=== PATIENT | female | born 1990 | race Caucasian/White ===

== ENCOUNTER 2023-12-29 18:14 | Emergency (ER) | payer BC ==
[~2023-12-29] VITALS: Ht 162.6 cm; Wt 68.9 kg
[2023-12-29 19:18] LABS: BILIRUBIN, URINE NEGATIVE (negative); BLOOD/HGB, URINE TRACE-I (Negative); KETONE, URINE NEGATIVE (Negative); LEUK ESTERASE, URINE NEGATIVE (negative); NITRITE, URINE NEGATIVE (negative)
[2023-12-29 19:27] LABS: HEMOGLOBIN 13.9 g/dL (12.0-18.0); RBC 4.65 M/ul (4.3-5.7)
[2023-12-29 19:28] LABS: BACTERIA, URINE 1+ /hpf (negative); CASTS, URINE NONE SEEN \\lpf; COLLECTION TYPE, URINE CLEAN CATCH; CRYSTALS, URINE NONE SEEN (0-1+); EPITHELIAL CELLS, URINE SQUAMOUS 2+ /lpf (0-1+); REFLEX CULTURE, URINE No (No)
[2023-12-29 19:30] LABS: BASOPHILS 0.8 % (0-2); EOSINOPHILS 1.7 % (0-6); LYMPHOCYTES 23.7 % (24-44); MCHC 34.8 g/dl (30-36); MCV 86.1 fl (81-99); MONOCYTES 8.5 % (0-12); NEUTROPHILS 65.3 % (39-80); PLATELET COUNT 215 K/uL (140-440)
[2023-12-29 19:41] LABS: ALBUMIN/GLOBULIN RATIO 1.29 (1.1-2.4); ANION GAP 9.6 (7-21); BILIRUBIN, TOTAL 0.5 ng/dL (0.2-1.0); BUN/CREATININE RATIO 12.04 (6.0-28.6); CALCIUM 8.7 mg/dL (8.5-10.1); CREATININE, SERUM 0.83 mg/dL (0.55-1.02); POTASSIUM 3.6 mmol/L (3.5-5.1); PROTEIN, TOTAL 7.1 g/dL (6.4-8.2)
[2023-12-29] MEDS ORDERED: MORPHINE SULFATE 4 MG/ML VIAL IV ONE (19:45)
[2023-12-29] MEDS ORDERED: ondansetron HCL 4 MG/2 ML VIAL IV ONE (19:45)
[2023-12-29] MEDS ORDERED: MACROBID 100 M100 MG PO (21:09)
[2023-12-29] MEDS ORDERED: HYDROCODON-ACE1 EA10 PO (21:11)
[2023-12-29] MEDS ORDERED: ONDANSETRON ODT8 MG PO (21:11)
[2023-12-29] MEDS ORDERED: ONDANSETRON 4 MG HOME.PACK SL ONE (21:30)
[2023-12-29] MEDS ORDERED: NITROFURANTOIN MONOHYD MACROCR 100 MG HOME.PACK PO ONE (21:30)
[2023-12-29] MEDS ORDERED: HYDROCODONE BIT/ACETAMINOPHEN 5/325 MG 1 TAB HOME.PACK PO ONE (21:30)
[2023-12-29 21:51] VITALS: BP 117/74
== END 2023-12-29 21:51 | disposition home or self-care (01) ==
LOC: ED 18:14
PROVIDERS: Family Medicine
DX: N39.0 Urinary tract infection, site not specified (principal); R10.11 Right upper quadrant pain
CPT/HCPCS: 36415; 76705; 80053; 81001; 83690; 84703; 85025; 96374; 96375; 99284-25; A9270; J2270; J2405